=== PATIENT | male | born 1995 | race Two or more races ===

== ENCOUNTER 2023-08-09 17:13 | Emergency (ER) | payer MEDICAID ==
[~2023-08-09] VITALS: Ht 180.3 cm; Wt 97.9 kg
[2023-08-09] MEDS ORDERED: TETANUS-DIPTH-ACEL PERTUSSIS 0.5ML SYR Tdap IM ONE (19:15)
[2023-08-09] MEDS ORDERED: CEPH500C PO (20:35)
[2023-08-09 21:14] VITALS: BP 112/74; PULSE 62; RESP 18; TEMP 98.5; O2SAT 98
== END 2023-08-09 21:16 | disposition home or self-care (01) ==
LOC: ER 17:13
DX: R59.0 Localized enlarged lymph nodes (principal)
CPT/HCPCS: 76536; 90471; 90715

== ENCOUNTER 2025-09-12 19:36 | Emergency (ER) | payer MEDICAID, OTHER ==
[~2025-09-12] VITALS: Ht 180.3 cm; Wt 98.4 kg
[~2025-09-12 19:36] MED LIST: CEPH500C PO
--- NOTE | 2025-09-12 20:28 | DVH ---
CLINICAL INDICATION: right hip pain TECHNIQUE: 4 radiographic views of the right hip were obtained. COMPARISON: None FINDINGS/IMPRESSION: Bony alignment is normal No fracture or dislocation. If physical examination suggests nondisplaced fracture recommend CT of the pelvis.
--- NOTE | 2025-09-12 20:28 | DVH ---
CLINICAL INDICATION: lumbar back pain TECHNIQUE: 2 radiographic views of the lumbar spine were obtained. COMPARISON: XY LUMBAR SPINE 4+ VIEW on DOS: 07/14/24 FINDINGS/IMPRESSION: Dextroscoliosis of the lumbar spine is noted. There are no prior studies for comparison and therefore this may represent a positional scoliosis. There are no compressed vertebra. There is no spondylolisthesis.
[2025-09-12 22:08] VITALS: BP 114/65; PULSE 60; RESP 18; TEMP 98.3; O2SAT 95
[2025-09-12] MEDS ORDERED: CYCL-837 PO (22:09)
[2025-09-12] MEDS ORDERED: IBUP-1456 PO (22:09)
--- NOTE | 2025-09-12 22:09 | ED.PDOC ---
Back pain HPI HPI Comments 30-year-old male presents to ER with complaints of back pain x3 days. Patient reports he started experiencing diffuse right lower lumbar back pain and right hip pain three days ago after he went to step out of his truck. He rates his current pain a 10/10 and states he has been taking ibuprofen for his pain without relief. Patient presents to ER ambulatory, with use of cane, in mild distress. Denies fever, body aches, chills, night sweats, trauma/falls, numbness/tingling, nausea/vomiting, extremity weakness, changes in urination/BM or any further symptoms/complaints Chief Complaint: Back Pain Time Seen by MD: 20:01 Primary Care Provider: UNKNOWN Reviewed Notes: Nurses Notes, Medications, Allergies Allergies: Coded Allergies: No Known Drug Allergy (Verified Allergy, Unknown, 08/09/23) Home Meds Active Scripts Cyclobenzaprine Hcl (Cyclobenzaprine Hcl) 5 Mg Tab, 1 TAB PO QPM PRN, #14 TAB 0 Refills Prov:JOSUÉ LIMA 09/12/25 Ibuprofen (Ibuprofen) 800 Mg Tab, 1 TAB PO TID PRN, #30 TAB 0 Refills Prov:JOSUÉ LIMA 09/12/25 Cephalexin Monohydrate (Cephalexin) 500 Mg Cap, 1 CAP PO QID for 5 Days, #20 CAP Prov:VERA NOVOA 08/09/23 Information Source: Patient Mode of Arrival: Ambulatory Past Medical History PAST MEDICAL HISTORY: Denies Surgical History: Denies all surgeries Family History Family History: Unknown Social History Smoker: Non-Smoker Alcohol: Denies ETOH Use Drugs: Denies Drug Use Lives In: Home Constitutional: denies: chills, diaphoresis, fatigue, fever, malaise, sweats, weakness, others EENTM: denies: blurred vision, double vision, ear bleeding, ear discharge, ear drainage, ear pain, ear ringing, eye pain, eye redness, hearing loss, mouth pain, mouth swelling, nasal discharge, nose bleeding, nose congestion, nose pain, photophobia, tearing, throat pain, throat swelling, voice changes, others Respiratory: denies: cough, hemoptysis, orthopnea, SOB at rest, shortness of breath, SOB with excertion, stridor, wheezing, others Cardiovascular: denies: chest pain, dizzy spells, diaphoresis, Dyspnea on exertion, edema, irregular heart beat, left arm pain, lightheadedness, palpitations, PND, syncope, others Gastrointestinal: denies: abdomen distended, abdominal pain, blood streaked bowels, constipated, diarrhea, dysphagia, difficulty swallowing, hematemesis, melena, nausea, poor appetite, poor fluid intake, rectal bleeding, rectal pain, vomiting, others Genitourinary: denies: burning, dysuria, flank pain, frequency, hematuria, incontinence, penile discharge, penile sore, pain, testicle pain, testicle swelling, urgency, others Neurological: denies: dizziness, fainting, headache, left sided numbness, left sided weakness, numbness, paresthesia, pre-existing deficit, right sided numbness, right sided weakness, seizure, speech problems, tingling, tremors, weakness, others Musculoskeletal: reports: others (As stated in HPI) Integumetry: denies: bruises, change in color, change in hair/nails, dryness, laceration, lesions, lumps, rash, wounds, others Allergic/Immunocompromised: denies: Difficulty Healing, Frequent Infections, Hives, Itching, others Hematologic/Lymphatic: denies: anemia, blood clots, easy bleeding, easy bruising, swollen glands, others Endocrine: denies: excessive hunger, excessive sweating, excessive thirst, excessive urination, flushing, intolerance to cold, intolerance to heat, unexplained weight gain, unexplained weight loss, others Psychiatric: denies: anxiety, bipolar disorder, depression, hopeless, panic disorder, schizophrenia, sleepless, suicidal, others Physical Exam General Appearance: Mild Distress HEENT: PERRL/EOMI Neck: Full Range of Motion, Non-Tender, Normal Respiratory: Chest Non-Tender, Lungs Clear, No Accessory Muscle Use, No Respiratory Distress, Normal Breath Sounds Cardiovascular: No Murmur, No Gallop, Regular Rate/Rhythm Breast Exam: Deferred Gastrointestinal: Non Tender, No Pulsatile Mass, Soft Genitalia: Deferred Pelvic: Deferred Rectal: Deferred Extremities: Normal capillary refill, Normal range of motion Musculoskeletal : Extremity Location: Back (TTP to right lower lumbar paraspinals and centralized to lower lumbar spine noted. No skin changes noted. Gait slowed with use of cane), Hip (TTP to right hip noted. No internal rotation/shortening to bilateral lower extremities noted. Pulses intact) Neurologic: Alert, No Motor Deficits, No Sensory Deficits Cerebellar Function: Normal Reflexes: Normal Skin: Dry, Normal Color, Warm Peripheral Pulses: 2+ femoral (R), 2+ femoral (L), 2+ dorsalis pedis (R), 2+ dorsalis pedis (L), 2+ Radial (R), 2+ Radial (L), 2+ Brachial (R), 2+ Brachial (L) Lymphatic: No Adenopathy Was a procedure done? Was a procedure done?: No Sedation Sedation?: No Back Pain Differential Dx Differential Diagnosis: AAA, Fracture, Urolithiasis, Other (Neurovascular injury) X-Ray, Labs, Meds, VS Vital Signs Date Time Temp Pulse Resp B/P (MAP) Pulse Ox O2 Delivery O2 Flow Rate FiO2 09/12/25 22:08 98.3 60 18 114/65 (81) 95 98.3 09/12/25 19:52 98.4 77 18 113/62 96 98.4 PATIENT: THIERRY NOLASCO ACCT: [id number] UNIT: [id number] : 1995 LOC: ER ROOM / BED: / AGE / SEX: 30 / M ADM STATUS: REG ER SERVICE 00 ORDERING PHYSICIAN: JOSUÉ LIMA PROCEDURE(s): LUMB2 - LUMBAR SPINE 3 VIEW REASON: lumbar back pain ORDER NUMBER(s): [id number], ACCESSION NUMBER(s): [id number] CLINICAL INDICATION: lumbar back pain TECHNIQUE: 2 radiographic views of the lumbar spine were obtained. COMPARISON: XY LUMBAR SPINE 4+ VIEW on DOS: 07/14/24 FINDINGS/IMPRESSION: Dextroscoliosis of the lumbar spine is noted. There are no prior studies for comparison and therefore this may represent a positional scoliosis. There are no compressed vertebra. There is no spondylolisthesis. ATED BY: MILES SMALLWOOD Jr., DO DICTATED DATE/TIME: 09/12/252025 SIGNED BY: MIELS SMALLWOOD Jr., SIGNED DATE/TIME: 09/12/252025 CC: PATIENT: THIERRY NOLASCO ACCT: [id number] UNIT: [id number] : 1995 LOC: ER ROOM / BED: / AGE / SEX: 30 / M ADM STATUS: REG ER SERVICE 00 ORDERING PHYSICIAN: JOSUÉ LIMA PROCEDURE(s): RHIP - R HIP COMPLETE XRAY REASON: right hip pain ORDER NUMBER(s): [id number], ACCESSION NUMBER(s): [id number] CLINICAL INDICATION: right hip pain TECHNIQUE: 4 radiographic views of the right hip were obtained. COMPARISON: None FINDINGS/IMPRESSION: Bony alignment is normal No fracture or dislocation. If physical examination suggests nondisplaced fracture recommend CT of the pelvis. ATED BY: MILES SMALLWOOD Jr., DO DICTATED DATE/TIME: 09/12/252024 SIGNED BY: MILES SMALLWOOD Jr., SIGNED DATE/TIME: 09/12/252024 CC: Lumbar spine x-ray reviewed Right hip x-ray reviewed Toradol 60 mg IM ordered Patient had improvement in symptoms and in no distress prior to discharge Advised on rest/no strenuous activity Advised to follow up with PCP in 1-2 days Patient verbalized understanding and agreeable with current plan of care Advised to return to ER immediately if symptoms worsen Images Reviewed?: Images reviewed and evaluated by me Time of 1ST Reevaluation: 21:40 Reevaluation 1ST: N/A Patient Education/Counseling: Diagnosis, Treatment, Prognosis, Need For Follow Up Family Education/Counseling: No Family Present SEPSIS Sepsis Screen Date sepsis recognized/suspect: Sep 12, 2025 Time Sepsis recognized/suspect: 1955 Recent Procedure: No On Antibiotic Therapy: No Respiratory Rate >20: No Heart Rate >90: No Temp<36 C (96.8 F) or >38.3 C: No SBP <90 or MAP <65 mmHG: No New Acute Mental Status Change: No Is the patient on CPAP, BIPAP,: No Physician Orders Lumbar Spine 3 View (09/12/25 20:01) R Hip Complete Xray (09/12/25 20:01) Ketorolac Injection (Toradol Injection) (09/12/25 22:15) Vital Signs Date Time Temp Pulse Resp B/P (MAP) Pulse Ox O2 Delivery O2 Flow Rate FiO2 09/12/25 22:08 98.3 60 18 114/65 (81) 95 98.3 09/12/25 19:52 98.4 77 18 113/62 96 98.4 Departure 1 Departure Time of Disposition: 22:06 Impression: Primary Impression: Lumbar strain Qualified Codes: S39.012A - Strain of muscle, fascia and tendon of lower back, initial encounter Additional Impression: Right hip pain Disposition: HOME / SELF CARE / HOMELESS Condition: Stable e-Prescriptions Cyclobenzaprine Hcl (Cyclobenzaprine Hcl) 5 Mg Tab 1 TAB PO QPM PRN, #14 TAB 0 Refills Prov: JOSUÉ LIMA 09/12/25 Ibuprofen (Ibuprofen) 800 Mg Tab 1 TAB PO TID PRN, #30 TAB 0 Refills Prov: JOSUÉ LIMA 09/12/25 Discharged With: Friend Critical Care Note Critical Care Time?: No Stability Stability form required: No Heart Score Heart Score: Heart Score Response (Comments) Value History N/A 0 EKG N/A 0 Age N/A 0 Risk Factors N/A 0 Troponin N/A 0 Total 0 JOSUÉ LIMA Sep 12, 2025 22:09
[2025-09-12] MEDS: KETOROLAC TROMETH 60MG/2ML VIAL IM ONE (22:20)
== END 2025-09-12 22:24 | disposition home or self-care (01) ==
LOC: ER 19:36
DX: S39.012A Strain of muscle, fascia and tendon of lower back, initial encounter (principal); M25.551 Pain in right hip; Z79.899 Other long term (current) drug therapy; X58.XXXA Exposure to other specified factors, initial encounter; Y93.89 Activity, other specified; Y92.89 Other specified places as the place of occurrence of the external cause; Y99.8 Other external cause status
CPT/HCPCS: 72100; 73502; 96372; 99284; J1885